=== PATIENT | male | born 1970 | race Two or more races ===

== ENCOUNTER 2016-05-02 20:51 | Emergency (ER) | payer MEDICAID, OTHER ==
[~2016-05-02] VITALS: Ht 188 cm; Wt 88.0 kg
[2016-05-02 21:14] VITALS: BP 136/86
== END 2016-05-03 00:55 | disposition left against medical advice (07) ==
LOC: ER 20:56
DX: Z76.1 Encounter for health supervision and care of foundling (principal); Z76.0 Encounter for issue of repeat prescription
CPT/HCPCS: 82962